=== PATIENT | female | born 1980 | race Caucasian/White ===

== ENCOUNTER 2019-11-26 14:23 | Emergency (ER) | payer OTHER ==
[~2019-11-26] VITALS: Ht 167.6 cm; Wt 56.7 kg
[2019-11-26] MEDS ORDERED: BUSP5 PO (17:22)
[2019-11-26] MEDS ORDERED: ONDA4ODT MM (17:22)
== END 2019-11-26 17:34 | disposition home or self-care (01) ==
LOC: ER 14:23
DX: F11.23 Opioid dependence with withdrawal (principal); F17.200 Nicotine dependence, unspecified, uncomplicated; Z88.0 Allergy status to penicillin
CPT/HCPCS: 96372; 99283-25; J2060

== ENCOUNTER 2021-02-24 14:00 | Emergency (ER) | payer OTHER ==
[~2021-02-24] VITALS: Ht 162.6 cm; Wt 54.3 kg
[~2021-02-24 14:00] MED LIST: BUSP5 PO; ONDA4ODT MM
[2021-02-24 15:16] LABS: BASOPHILS ABSOLUTE AUTO 0.03 K/mm3 (0.00-0.23); BASOPHILS PERCENT AUTO 0 % (0-2); EOSINOPHILS PERCENT AUTO 0 % (0-6); Hematocrit 40.6 % (33.0-51.0); Hemoglobin 13.4 g/dL (11.5-16.0); IMMATURE GRAN ABSOLUTE AUTO 0.09 K/mm3 (0.00-0.10); IMMATURE GRAN PERCENT AUTO 1 % (0-1); LYMPHOCYTES ABSOLUTE AUTO 1.08 K/mm3 (0.84-5.20); LYMPHOCYTES PERCENT AUTO 7 % (21-46); MONOCYTES ABSOLUTE AUTO 0.46 K/mm3 (0.16-1.47); MONOCYTES PERCENT AUTO 3 % (4-13); Mean Corpuscular HGB 26.3 pg (26.0-34.0); Mean Corpuscular Volume 80 fL (80-100); Mean Platelet Volume 10.4 fL (9.1-12.4); NEUTROPHILS ABSOLUTE AUTO 14.17 K/mm3 (1.96-9.15); NEUTROPHILS PERCENT AUTO 90 % (41-73); Platelet Count 407 K/mm3 (150-400); RDW Standard Deviation 43.7 fL (35.1-46.3); White Blood Cell Count 15.83 K/mm3 (4.00-11.30)
[2021-02-24 15:40] LABS: Alanine Aminotransfer (ALT/SGP 30 U/L (12-78); Albumin/Globulin Ratio 0.5 (0.8-1.8); Alk Phos 108 U/L (50-136); Anion Gap 6 mmol/L (6-16); Aspartate Aminotrans (AST/SGOT 28 U/L (12-37); Bilirubin, Total 0.7 mg/dL (0.1-1.0); Blood Urea Nitrogen 11 mg/dL (8-24); Bun/Creatinine Ratio 21.6 (12.0-20.0); CO2, Blood 29 mmol/L (21-32); Calcium, Blood 9.4 mg/dL (8.5-10.1); Chloride, Blood 99 mmol/L (98-108); Creatinine, Blood 0.51 mg/dL (0.40-1.00); Globulin, Blood 6.5 g/dL (2.2-4.0); Glomerular Filtration Rate >60 (60-); Glucose, Blood 105 mg/dL (70-99); Potassium, Blood 3.6 mmol/L (3.5-5.5); Sodium, Blood 134 mmol/L (136-145); Total Protein, Blood 9.5 g/dL (6.4-8.2)
[2021-02-24 18:08] LABS: Source, Urine Clean Catch
[2021-02-24 18:14] LABS: Appearance, Urine Clear (Clear); Bilirubin, Urine Neg (Neg); Blood, Urine 2+ (Neg); Color, Urine Yellow (P-Yellow); Glucose Qualitative, Urine Neg (Neg); Ketones, Urine 4+ (Neg); Leukocyte Esterase, Urine 1+ (Neg); Nitrite, Urine Neg (Neg); Protein, Urine 2+ (Neg); Urobilinogen, Urine 1+ (Normal); pH, Urine 6.5 (5.0-8.0)
[2021-02-24 18:28] LABS: Bacteria Few /hpf; Red Blood Cells, Urine 0-2 /hpf (0-2); Squamous Epithelial Cells Mod /hpf (Few)
== END 2021-02-24 21:49 | disposition short-term general hospital (02) ==
LOC: ER 14:00
PROVIDERS: Physician Assistant
DX: M54.5 Low back pain (principal); R10.9 Unspecified abdominal pain; R20.8 Other disturbances of skin sensation; F17.200 Nicotine dependence, unspecified, uncomplicated
CPT/HCPCS: 36415; 51798; 72125; 72128; 72131; 74177; 80053; 81001; 83605; 83690; 84703; 85025; 87040; 87077; 87086; 87147; 87186; 96361-59; 96365-59; 96366; 96367-59; 96375-59; 96376-59; 99285-25; A9270; J0696; J1885; J2270; J2405; J3010; J3370; J7030; P9612; Q9967

== ENCOUNTER 2021-04-10 07:40 | Inpatient (IN) | payer OTHER ==
[~2021-04-10] VITALS: Ht 165.1 cm; Wt 64.0 kg
[2021-04-10 09:00] LABS: BASOPHILS ABSOLUTE AUTO 0.03 K/mm3 (0.00-0.23); BASOPHILS PERCENT AUTO 0 % (0-2); EOSINOPHILS ABSOLUTE AUTO 0.02 K/mm3 (0.00-0.68); EOSINOPHILS PERCENT AUTO 0 % (0-6); Hemoglobin 12.1 g/dL (11.5-16.0); IMMATURE GRAN ABSOLUTE AUTO 0.02 K/mm3 (0.00-0.10); IMMATURE GRAN PERCENT AUTO 0 % (0-1); LYMPHOCYTES ABSOLUTE AUTO 0.74 K/mm3 (0.84-5.20); LYMPHOCYTES PERCENT AUTO 8 % (21-46); MONOCYTES PERCENT AUTO 2 % (4-13); Mean Corpuscular HGB 26.8 pg (26.0-34.0); Mean Corpuscular HGB Conc 31.8 g/dL (31.5-36.5); Mean Corpuscular Volume 84 fL (80-100); Mean Platelet Volume 10.1 fL (9.1-12.4); NEUTROPHILS ABSOLUTE AUTO 8.66 K/mm3 (1.96-9.15); NEUTROPHILS PERCENT AUTO 90 % (41-73); Platelet Count 314 K/mm3 (150-400); RDW Coefficient Variation 15.8 % (11.7-14.2); RDW Standard Deviation 48.6 fL (35.1-46.3); Red Blood Cell Count 4.51 M/mm3 (3.80-5.20); White Blood Cell Count 9.67 K/mm3 (4.00-11.30)
[2021-04-10 09:25] LABS: Alanine Aminotransfer (ALT/SGP 44 U/L (12-78); Albumin, Blood 3.3 g/dL (3.4-5.0); Albumin/Globulin Ratio 0.5 (0.8-1.8); Alk Phos 85 U/L (50-136); Anion Gap 7 mmol/L (6-16); Aspartate Aminotrans (AST/SGOT 34 U/L (12-37); Bilirubin, Total 0.4 mg/dL (0.1-1.0); Blood Urea Nitrogen 11 mg/dL (8-24); Bun/Creatinine Ratio 23.1 (12.0-20.0); CO2, Blood 25 mmol/L (21-32); Calcium, Blood 9.3 mg/dL (8.5-10.1); Chloride, Blood 104 mmol/L (98-108); Creatinine, Blood 0.48 mg/dL (0.40-1.00); Globulin, Blood 6.1 g/dL (2.2-4.0); Glomerular Filtration Rate >60 (60-); Glucose, Blood 97 mg/dL (70-99); Potassium, Blood 3.9 mmol/L (3.5-5.5); Sodium, Blood 136 mmol/L (136-145); Total Protein, Blood 9.4 g/dL (6.4-8.2)
[2021-04-10 10:56] LABS: SARS-Cov-2 (COVID-19) PCR, MMC NEGATIVE (NEGATIVE)
[2021-04-10] MEDS ORDERED: MIRALAX17 G3 PO (15:55)
[2021-04-10] MEDS ORDERED: MULTI-VITAMIN1 EAC2 PO (15:55)
[2021-04-10] MEDS ORDERED: IBU800 M1 PO (15:56)
[2021-04-10] MEDS ORDERED: GABA400 PO (15:56)
[2021-04-10] MEDS ORDERED: CYMBALTA30 M2 PO (15:56)
[2021-04-10] MEDS ORDERED: Hydroxyzine HCl50 MG PO (15:56)
[2021-04-10] MEDS ORDERED: ZYVOX PO (15:57)
[2021-04-10] MEDS ORDERED: CYCL10 PO (15:57)
[2021-04-10 16:58] LABS: Source, Urine Clean Catch
[2021-04-10 17:01] LABS: Appearance, Urine Clear (Clear); Bilirubin, Urine Neg (Neg); Blood, Urine 2+ (Neg); Color, Urine Yellow (P-Yellow); Glucose Qualitative, Urine Neg (Neg); Ketones, Urine 2+ (Neg); Leukocyte Esterase, Urine Neg (Neg); Nitrite, Urine Neg (Neg); Protein, Urine Neg (Neg); Specific Gravity, Urine 1.015 (1.003-1.022); Urobilinogen, Urine 1+ (Normal)
[2021-04-10 17:11] LABS: White Blood Cells, Urine 0-2 /hpf (0-5)
[2021-04-10 17:12] LABS: Bacteria Rare /hpf; Squamous Epithelial Cells Few /hpf (Few)
[2021-04-11 04:42] LABS: Hematocrit 31.7 % (33.0-51.0); Mean Corpuscular HGB 26.6 pg (26.0-34.0); Mean Corpuscular HGB Conc 31.5 g/dL (31.5-36.5); Mean Corpuscular Volume 84 fL (80-100); Mean Platelet Volume 10.4 fL (9.1-12.4); Platelet Count 279 K/mm3 (150-400); RDW Coefficient Variation 15.9 % (11.7-14.2); RDW Standard Deviation 50.2 fL (35.1-46.3); Red Blood Cell Count 3.76 M/mm3 (3.80-5.20); White Blood Cell Count 6.01 K/mm3 (4.00-11.30)
[2021-04-11 05:00] LABS: Anion Gap 3 mmol/L (6-16); Blood Urea Nitrogen 14 mg/dL (8-24); Bun/Creatinine Ratio 27.1 (12.0-20.0); CO2, Blood 28 mmol/L (21-32); Calcium, Blood 8.3 mg/dL (8.5-10.1); Chloride, Blood 107 mmol/L (98-108); Creatinine, Blood 0.52 mg/dL (0.40-1.00); Glomerular Filtration Rate >60 (60-); Glucose, Blood 130 mg/dL (70-99); Potassium, Blood 3.3 mmol/L (3.5-5.5); Sodium, Blood 138 mmol/L (136-145)
[2021-04-11 05:50] LABS: BASOPHILS ABSOLUTE MAN 0.06 K/mm3 (0.00-0.23); BASOPHILS PERCENT MAN 1 % (0-2); EOSINOPHILS ABSOLUTE MAN 0.06 K/mm3 (0.00-0.68); EOSINOPHILS PERCENT MAN 1 % (0-6); LYMPHOCYTES ABSOLUTE MAN 1.62 K/mm3 (0.84-5.20); LYMPHOCYTES PERCENT MAN 27 % (21-46); MONOCYTES ABSOLUTE MAN 0.48 K/mm3 (0.16-1.47); MONOCYTES PERCENT MAN 8 % (4-13); NEUTROPHILS ABSOLUTE MAN 3.78 K/mm3 (1.96-9.15); SEG NEUTROPHILS PERCENT MAN 63 % (41-73); TOTAL CELLS COUNTED 100
--- NOTE | 2021-04-12 13:29 | NUR ---
Pt. sleeping off and on during shift, watching tv at times. appetite very good, eats 100% meals and has snack between meals. Denies pain. Up to bathroom to shower this a.m.and had bm.
--- NOTE | 2021-04-12 17:01 | NUR ---
Shift Summary: Pt. sleeping off and on all day. Denies pain. When awake is eating ice cream and francy crackers.
--- NOTE | 2021-04-12 18:23 | NUR ---
pt. did c/o back pain this evening and ultram given. At this time request flexeril for back spasm, given. Resting with no further complaint.
[2021-04-13 04:14] LABS: BASOPHILS ABSOLUTE AUTO 0.04 K/mm3 (0.00-0.23); BASOPHILS PERCENT AUTO 1 % (0-2); EOSINOPHILS ABSOLUTE AUTO 0.24 K/mm3 (0.00-0.68); EOSINOPHILS PERCENT AUTO 5 % (0-6); Hematocrit 33.6 % (33.0-51.0); Hemoglobin 10.6 g/dL (11.5-16.0); Mean Corpuscular HGB 26.7 pg (26.0-34.0); Mean Corpuscular HGB Conc 31.5 g/dL (31.5-36.5); Mean Corpuscular Volume 85 fL (80-100); Mean Platelet Volume 9.9 fL (9.1-12.4); Platelet Count 354 K/mm3 (150-400); RDW Coefficient Variation 16.3 % (11.7-14.2); RDW Standard Deviation 50.5 fL (35.1-46.3); Red Blood Cell Count 3.97 M/mm3 (3.80-5.20)
[2021-04-13 04:31] LABS: IMMATURE GRAN ABSOLUTE AUTO 0.02 K/mm3 (0.00-0.10); IMMATURE GRAN PERCENT AUTO 0 % (0-1); LYMPHOCYTES ABSOLUTE AUTO 2.45 K/mm3 (0.84-5.20); LYMPHOCYTES PERCENT AUTO 46 % (21-46); MONOCYTES ABSOLUTE AUTO 0.58 K/mm3 (0.16-1.47); MONOCYTES PERCENT AUTO 11 % (4-13); NEUTROPHILS ABSOLUTE AUTO 1.97 K/mm3 (1.96-9.15); NEUTROPHILS PERCENT AUTO 37 % (41-73)
[2021-04-13 04:32] LABS: Anion Gap 3 mmol/L (6-16); Blood Urea Nitrogen 13 mg/dL (8-24); Bun/Creatinine Ratio 25.9 (12.0-20.0); CO2, Blood 28 mmol/L (21-32); Calcium, Blood 8.7 mg/dL (8.5-10.1); Chloride, Blood 103 mmol/L (98-108); Glomerular Filtration Rate >60 (60-); Glucose, Blood 103 mg/dL (70-99); Potassium, Blood 4.4 mmol/L (3.5-5.5); Sodium, Blood 134 mmol/L (136-145)
--- NOTE | 2021-04-13 06:12 | NUR ---
Pt in bed at this time where she remains throughout the night and is resting comfortably in stable condition. She is alert and oriemted, is pleasant. She c/o of lumbar pain secondary to chronic lower back pain and was medicated as indicated, medicated with other ordered meds, assisted with care and ADLs, assisted with bathroom and toileting needs. IV left upper arm is patent, no discomfort at the IV insertion site. Her call light is near her and urged to call for help when assistance is needed as she is monitored.
--- NOTE | 2021-04-13 08:03 | NUR ---
asessment: PT SLEEPING. APPEARS TO BE RESTING COMFORTABLY WITH NO S/S DISTRESS. VSS. CALL LIGHT IN REACH. WILL DO FULL ASSESSMENT WHEN AWAKE.
--- NOTE | 2021-04-13 19:15 | NUR ---
PT HAS BEEN STABLE THIS SHIFT. CONTINUES TO REPORT HIGH PAIN LEVELS. PT MEDICATED PER EMAR. PT SLEEPS AFTER PAIN MEDS AND T/O MOST OF THE DAY. KPAD TO BACK FOR COMFORT. PT WORKED WITH THERAPY THIS AFTERNOON. PT UP TO COMMODE WITH MIN ASSIST. VOIDING WELL. PT HAD BM THIS AM. PT CHELSEA DIET. CONT ABX ORDERED. IV AT TKO. PT USES CALL LIGHT APPROPRIATELY NEEDED.
--- NOTE | 2021-04-14 06:15 | NUR ---
AAOX4. NO ACUTE DISTRESS NOTED AT THIS. CALL LIGHT WITHIN REACH. BED AT LOWEST POSITION AND LOCKED. NO VERBALIZED NEEDS AT THIS TIME
--- NOTE | 2021-04-14 16:41 | NUR ---
Initial Palliative visit with pt today. She's alert, oriented and pleasant today. 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 She is not currently using, and states she plans to remain free of the addiction, as she realizes this is likely the reason for the infection in the first place. I asked if she enjoyed reading or anything, she states she loves doing adult coloring book, so I brought her some to color with. Plan to follow up with her in 2 days.
--- NOTE | 2021-04-14 17:45 | NUR ---
SHIFT SUMMARY PT REMAINS IN THE HOSPITAL FOR IV ABX. PAIN HAS BEEN MANAGED WITH PO PAIN MEDICATION. PT IS INDEPENDENT IN THE ROOM. VSS. WILL MONITOR UNTIL REPORT TO JEANNIE ROBBINS.
--- NOTE | 2021-04-15 04:23 | NUR ---
LYING IN SEMI FOWLERS WITH EYES CLOSED. HAS BEEN PLEASANT AND COOPERATIVE WITH CARE. RESTED WELL SINCE START OF SHIFT. STATS MELATONIN WORKS WELL FOR HER. PAIN MANAGED PER EMAR. CONTINUEING SCHEDULED ABX PER MDORDERS. DENIES FURTHER NEEDS OR WANTS AT THIS TIME. SAFETY MEASURES IN PLACE. WILL GIVE HAND OFF TO ONCOMING SHIFT USIING SBAR DURING BEDSIDE REPORT.
--- NOTE | 2021-04-15 17:06 | NUR ---
SHIFT SUMMARY PT A&OX4, VSS/RA. SPINAL ABSCESS/BACK PAIN 7-03/24, TREATED WITH ULTRAM Q4P, TYLENOL Q6P AND FLEXERIL TID, ICY HOT PATCH TO LOWER BACK. 18G IV LYNN, ABX Q8 PER EMAR. CHELSEA PO. VOIDING WELL/BSC, BM TODAY. SHOWERED TODAY. AMB SBA TO BRP OCCASSIONALLY. WILL REPORT TO ONCOMING NOC RN.
--- NOTE | 2021-04-16 04:18 | NUR ---
SHIFT SUMMARY PT A&O T/O SHIFT. PT VERY PAINFUL, DR. CORADO CONTACTED AND EMAR ADJUSTED. BT'S PRESENT IN ALL 4 Q'S. VSS. CALL LIGHT W/IN REACH. PT DENIES SOB/ CHEST PAIN. PT RESTED IN BED T/O NIGHT.
[2021-04-16 07:09] LABS: HIV SCREEN 4TH GENERATION WRFX Non Reactive (Non Reactive)
--- NOTE | 2021-04-16 16:06 | NUR ---
SHIFT SUMMARY PT A&OX4, VSS/RA, PAIN MANAGED WITH TYLENOL/TORADOL/ULTRAM/METHADONE - NO FENT GIVEN THIS SHIFT. PT PARTICIPATED WITH PHYSICAL THERAPY, AMBULATING TO BRP AND HALLWAYS T/O SHIFT. CHELSEA PO. VOIDING WELL. 18G LYNN, ABX INFUSED PER EMAR. WILL REPORT TO JEANNIE ROBBINS.
--- NOTE | 2021-04-17 06:36 | NUR ---
LYING ON RIGHT SIDE WITH HOB IN SEMI FOWLERS WITH EYES CLOSED. HAS BEEN PAINFUL AND RESTED OFF AND ON TONIGHT. STATES SHE WANTS FENTANYL BACK, NURSING REITERATED DANGERS OF MIXING NARCOTICS WITH METHADONE. PAIN ADDRESSED PER EMAR. CONTINUEING SCHEDULED ABX PER MD ORDERS. PROVIDED WITH MULTIPLE SNACKS THIS SHIFT, IS REQUESTING MORE AT THIS TIME. DENIES FURTHER NEEDS OR WANTS AT THIS TIME. SAFETY MEASURES IN PLACE. WILL GIVE HAND OFF TO ONCOMING SHIFT USIING SBAR DURING BEDSIDE REPORT.
--- NOTE | 2021-04-17 15:48 | NUR ---
SHIFT SUMMARY: SPINE ABCESS PATIENT IS ALERT AND ORIENTED X4. VS ARE WNL AND IS ON RA. PAIN IS UNDER CONTROL WITH IV TORADOL AND PO ULTRAM SO FAR TODAY. IV IS RUNNING WITH FLUIDS AND ABX. SHE IS INDEPENDANT IN THE ROOM BUT CALLS APPROPRIATELY. SHE IS ABLE TO READJUST HERSELF IN BED NEEDED. PATIENT WAS ABLE TO TAKE A SHOWER TODAY. SHE IS TOLERATING PO INTAKE WITH MEALS AND SNACKS. PATIENT IS VOIDING AND PASSING GAS. THE PLAN IS TO CONTINUE IV ABX AND AWAITING FOR DISCHARGE PLANNING FOR PLACEMENT.
[2021-04-18 16:31] LABS: Source, Urine Clean Catch
[2021-04-18 16:46] LABS: Appearance, Urine Clear (Clear); Bilirubin, Urine Neg (Neg); Blood, Urine Neg (Neg); Color, Urine Amber (P-Yellow); Glucose Qualitative, Urine Neg (Neg); Ketones, Urine Neg (Neg); Leukocyte Esterase, Urine Neg (Neg); Nitrite, Urine Neg (Neg); Protein, Urine 1+ (Neg); Specific Gravity, Urine 1.015 (1.003-1.022); Urobilinogen, Urine NORM (Normal)
[2021-04-19 10:05] LABS: Candida species (DNA Probe) Negative (NEGATIVE); G. vaginalis (DNA Probe) Positive (NEGATIVE); T. vaginalis (DNA Probe) Negative (NEGATIVE)
--- NOTE | 2021-04-20 17:45 | NUR ---
SHIFT SUMMARY PT A&OX4, VSS/RA, FEVER TREATED WITH TYLENOL/IMPROVING, PAIN TREATED WITH METHADONE TID AND ULTRAM PRN. IV ABX PER EMAR. AMB INDEPENDENT IN ROOM, SHOWERED TODAY. VOIDING. WILL REPORT TO ONCOMING NOC RN.
[2021-04-21 05:26] LABS: BASOPHILS ABSOLUTE AUTO 0.04 K/mm3 (0.00-0.23); BASOPHILS PERCENT AUTO 0 % (0-2); EOSINOPHILS ABSOLUTE AUTO 0.14 K/mm3 (0.00-0.68); EOSINOPHILS PERCENT AUTO 2 % (0-6); Hematocrit 33.5 % (33.0-51.0); Hemoglobin 10.7 g/dL (11.5-16.0); IMMATURE GRAN ABSOLUTE AUTO 0.04 K/mm3 (0.00-0.10); IMMATURE GRAN PERCENT AUTO 0 % (0-1); LYMPHOCYTES ABSOLUTE AUTO 2.53 K/mm3 (0.84-5.20); LYMPHOCYTES PERCENT AUTO 28 % (21-46); MONOCYTES ABSOLUTE AUTO 0.82 K/mm3 (0.16-1.47); MONOCYTES PERCENT AUTO 9 % (4-13); Mean Corpuscular HGB 26.6 pg (26.0-34.0); Mean Corpuscular HGB Conc 31.9 g/dL (31.5-36.5); Mean Corpuscular Volume 83 fL (80-100); Mean Platelet Volume 9.9 fL (9.1-12.4); NEUTROPHILS ABSOLUTE AUTO 5.41 K/mm3 (1.96-9.15); NEUTROPHILS PERCENT AUTO 60 % (41-73); Platelet Count 369 K/mm3 (150-400); RDW Coefficient Variation 16.1 % (11.7-14.2); RDW Standard Deviation 49.4 fL (35.1-46.3); Red Blood Cell Count 4.03 M/mm3 (3.80-5.20); White Blood Cell Count 8.98 K/mm3 (4.00-11.30)
[2021-04-21 05:58] LABS: Albumin, Blood 2.4 g/dL (3.4-5.0); Anion Gap 6 mmol/L (6-16); Blood Urea Nitrogen 14 mg/dL (8-24); Bun/Creatinine Ratio 25.9 (12.0-20.0); CO2, Blood 26 mmol/L (21-32); Calcium, Blood 8.9 mg/dL (8.5-10.1); Chloride, Blood 101 mmol/L (98-108); Creatinine, Blood 0.54 mg/dL (0.40-1.00); Glomerular Filtration Rate >60 (60-); Glucose, Blood 95 mg/dL (70-99); Phosphorus, Blood 4.2 mg/dL (2.5-4.9); Potassium, Blood 3.8 mmol/L (3.5-5.5); Sodium, Blood 133 mmol/L (136-145)
--- NOTE | 2021-04-21 12:49 | NUR ---
DISCHARGE DISCHARGE INSTRUCTIONS GIVEN TO PATIENT AT THIS TIME. PATIENT VERBALZIED UNDERSTANDING OF DC INSTUCTIONS. PRESCRIPTION GIVEN TO PATIENT. KNEE IMMOBILIZIEER IN PLACE.
--- NOTE | 2021-04-21 17:40 | NUR ---
PATIENT CURRENTLY LYING IN BED WITH NO SIGNS OR SYMPTOMS ACUTE DISTRESS NOTED. CALL LIGHT AND WATER IN EASY REACH. ABLE TO MAKE NEEDS AND WANTS KNOWN. AAOX4. MEDICATED FOR BACK PAIN TODAY PER ORDERS-SEE EMAR. PATIENT CONTINUES IV ANTIBIOTICS PER ORDERS. PATIENT UP AD TANIA. GOOD APPETITE. WILL MONITOR.
--- NOTE | 2021-04-22 05:47 | NUR ---
SHIFT SUMMARY NO ACUTE CHANGES OVERNIGHT. PT STS PAIN HAS IMPROVED FROM 7/10 PAIN LEVEL LAST NIGHT TO 5/10 PAIN LEVEL THIS MORNING. PAIN MANAGED WITH TYLENOL, ULTRAM, FLEXERIL AND METHANDONE. AOX4. PLEASANT. INDEPENDENT IN ROOM. PT TOOK A SHOWER BEFORE BED. TOLERATING PO INTAKE. DENIES NAUSEA AND VOMITING. ABX ADMINISTERED LAST NIGHT. CALL LIGHT WITHIN REACH. WILL PROVIDE REPORT TO ONCOMING NURSE. PLAN: CM - WAITING FOR PLACEMENT.
--- NOTE | 2021-04-22 18:17 | NUR ---
PATIENT CURRENTLY LYING IN BED WITH NO SIGNS OR SYMPTOMS ACUTE DISTRESS NOTED. CALL LIGHT AND WATER IN EASY REACH. ABLE TO MAKE NEEDS AND WANTS KNOWN. PATIENT COMPLAINED OF INCREASED PAIN IN BACK, REQUESTED A CALL TO DR NUNEZ. DR RESENDEZ ORDERED TORDAL WHICH PATIENT REFUSED. CALLED DR NUNEZ BACK WITH NEW ORDER FOR LIDODERM PATCH TO BE PLACED. PATIENT REQUESTED DILAUDID TO BE ORDERED, DR NUNEZ DENIED THE REQUEST. LIDODERM PATCH PLACED ON PATIENTS LOWER BACK. WILL MONITOR.
--- NOTE | 2021-04-23 04:16 | NUR ---
SHIFT SUMMARY PT A&O X4 AND IN PLEASENT MOOD T/O SHIFT. PT TOLERATING PO INTAKE WELL. INDEPENDENT IN ROOM. MINIMAL C/O PAIN, MEDICATED PER EMAR. BOWEL TONES PRESENT IN ALL 4 QUADRANTS. CALL LIGHT W/IN REACH. VSS.
[2021-04-23 12:54] LABS: U Amphetamine Screen Not Detected; U Barbituate Screen Not Detected; U Benzodiazapine Screen Not Detected; U Cocaine Screen Not Detected; U Methadone Screen DETECTED; U Methamphetamine Screen Not Detected; U Opiates Screen DETECTED
[2021-04-23 12:55] LABS: U Buprenorphine Screen Not Detected; U Cannabinoids Screen Not Detected; U Oxycodone Screen Not Detected; U Phencyclidine Screen Not Detected; U Propoxyphene Screen Not Detected
--- NOTE | 2021-04-23 19:35 | NUR ---
PATIENT HAD A GOOD DAY TODAY. NO SIGNS OR SYMPTOMS ACUTE DISTRESS NOTED. ABLE TO MAKE NEEDS AND WANTS KNOWN. URINE DRUG SCREEN DONE TODAY PER ORDERS. MEDICATED FOR PAIN PER ORDERS-SEE EMAR. IV ANTIBIOTICS CONTINUES, PATIENT TO DC ON THURSDAY ON PO ANTIBIOTICS. CALL LIGHT AND WATER IN EASY REACH. REPORT GIVEN TO ITZEL VELIZ.
--- NOTE | 2021-04-24 03:41 | NUR ---
SHIFT SUMMARY PT A&O X4 AND IN PLEASENT MOOD T/O SHIFT. PT RESTED IN BED T/O SHIFT. MIN COMPLAINTS OF PAIN, MEDICATED PER EMAR AND WITH HEAT PAD. TOLERATING PO INTAKE WELL. VSS. CALL LIGHT W/IN REACH.
--- NOTE | 2021-04-24 08:46 | NUR ---
PATIENT CURRENTLY SITTING UP IN BED EATING BREAKFAST. NO SIGNS OR SYMPTOMS ACUTE DISTRESS NOTED. CALL LIGHT AND WATER IN EASY REACH. ABLE TO MAKE NEEDS AND WANTS KNOWN.
--- NOTE | 2021-04-24 17:32 | NUR ---
PATIENT HAD A GOOD DAY TODAY. NO SIGNS OR SYMPTOMS ACUTE DISTRESS NOTED. CALL LIGHT AND WATER IN EASY REACH. ABLE TO MAKE NEEDS AND WANTS KNOWN. PATIENT DID NOT REQUEST ANY EXTRA PAIN MEDS TODAY. CONTINUES IV ANTIBIOTICS. PATIENT TO DISCHARGE ON THURSDAY ON PO ANTIBIOTICS. PATIENT CHANGES HER OWN LINENS AND IS GETTING INTO SHOWER. PATIENT IS UP AD TANIA WITH NO PROBLEMS. WILL MONITOR.
--- NOTE | 2021-04-25 17:24 | NUR ---
PATIENT CURRENTLY IN BED EATING SUPPER AT THIS TIME. CALL LIGHT AND WATER IN EASY REACH. ABLE TO MAKE NEEDS AND WANTS KNOWN. ASK FOR FOOD OFTEN. MEDICATED FOR PAIN WITH PRN PAIN MEDS SEE EMAR. CONTINUES IV ANTIBIOTICS. DROWSY MOST OF DAY. VOIDING WELL. AAO X 4. WILL MONITOR.
[2021-04-26] MEDS ORDERED: Acetaminophen325 M1 PO (11:18)
[2021-04-26] MEDS ORDERED: ASCO500 PO (11:19)
[2021-04-26] MEDS ORDERED: METH40 (11:20)
--- NOTE | 2021-04-26 12:25 | NUR ---
DISCHARGE NOTE: PATIENT WAS EDUCATED ON DISCHARGE INSTRUCTIONS. SHE VERBALIZED UNDERSTANDING OF INSTRUCTIONS. HER HARD PERSCRIPTION IS IN HER INSTRUCTION FOLDER. IV WAS TAKEN OUT AND WAS WNL. SHE IS ALERT AND ORIENTED X4. VS ARE WNL AND IS ON RA. PAIN IS MANAGED WITH PO PAIN MEDICATION. SHE IS ABLE TO TOLERATE PO INTAKE, VOID, AND HAS HAD A BM. PATIENT HAS BEEN IND. IN THE ROOM. SHE IS GATHERING HER ITEMS IN THE ROOM AT THIS TIME. SHE WILL BE WHEELCHAIRED OUT TO HER BOYFRIENDS CAR TO TAKE HER HOME.
== END 2021-04-26 13:45 | disposition home or self-care (01) | DRG 540 ==
LOC: ER 07:40 → SURS 15:46 → MEDS 15:46 → SURS 17:25
PROVIDERS: Internal Medicine; Internal Medicine Infectious Disease; Physician Assistant; ADMIT Internal Medicine
DX: M46.26 Osteomyelitis of vertebra, lumbar region (principal); R78.81 Bacteremia; Z20.822 Contact with and (suspected) exposure to COVID-19; N76.0 Acute vaginitis; T37.3X5A Adverse effect of other antiprotozoal drugs, initial encounter; B96.89 Other specified bacterial agents as the cause of diseases classified elsewhere; B95.61 Methicillin susceptible Staphylococcus aureus infection as the cause of diseases classified elsewhere; F11.10 Opioid abuse, uncomplicated; F15.10 Other stimulant abuse, uncomplicated; M46.46 Discitis, unspecified, lumbar region; F17.210 Nicotine dependence, cigarettes, uncomplicated; Z88.0 Allergy status to penicillin; Z59.00 Homelessness unspecified
CPT/HCPCS: 36415; 71045; 72158; 80048; 80053; 80069; 81001; 83605; 83735; 85025; 85651; 86140; 87040; 87077; 87147; 87186; 87389; 87480; 87510; 87660; 93306; 96365; 96366; 96375; 96376; 97110; 97116; 97162; 99285-25; A9270; A9579; J0690; J1170; J1885; J2405; J2550; J3010; J3370; J7030; J7050; U0004

== ENCOUNTER 2021-05-27 22:41 | Emergency (ER) | payer OTHER ==
[~2021-05-27] VITALS: Ht 165.1 cm; Wt 59.0 kg
[~2021-05-27 22:41] MED LIST changes: +ASCO500 PO; +Acetaminophen325 M1 PO; +CYCL10 PO; +CYMBALTA30 M2 PO; +GABA400 PO; +Hydroxyzine HCl50 MG PO; +IBU800 M1 PO; +METH40; +MIRALAX17 G3 PO; +MULTI-VITAMIN1 EAC2 PO; +ZYVOX PO
[2021-05-27] MEDS ORDERED: METHADONE HCL PO (23:39)
== END 2021-05-28 00:05 | disposition home or self-care (01) ==
LOC: ER 22:41
DX: T40.1X1A Poisoning by heroin, accidental (unintentional), initial encounter (principal); F17.210 Nicotine dependence, cigarettes, uncomplicated; Z88.0 Allergy status to penicillin
CPT/HCPCS: 99284

== ENCOUNTER 2021-06-05 10:04 | Emergency (ER) | payer OTHER ==
[~2021-06-05] VITALS: Ht 165.1 cm; Wt 59.0 kg
[~2021-06-05 10:04] MED LIST changes: +METHADONE HCL PO
[2021-06-05] MEDS ORDERED: Norco 5-325 Ta1 EACH PO (10:33)
[2021-06-05 11:10] LABS: Source, Urine Clean Catch
[2021-06-05 11:17] LABS: Appearance, Urine Clear (Clear); Bilirubin, Urine Neg (Neg); Blood, Urine 2+ (Neg); Color, Urine Yellow (P-Yellow); Glucose Qualitative, Urine Neg (Neg); Ketones, Urine Neg (Neg); Leukocyte Esterase, Urine 3+ (Neg); Nitrite, Urine Neg (Neg); Protein, Urine Neg (Neg); Specific Gravity, Urine 1.025 (1.003-1.022); Urobilinogen, Urine NORM (Normal)
[2021-06-05 11:42] LABS: Bacteria Many /hpf; Squamous Epithelial Cells Many /hpf (Few)
[2021-06-05 11:43] LABS: Amorphous Light (0-Heavy)
[2021-06-05] MEDS ORDERED: Macrobid 100 M100 MG PO (12:14)
== END 2021-06-05 12:22 | disposition home or self-care (01) ==
LOC: ER 10:04
PROVIDERS: Emergency Medicine
DX: N39.0 Urinary tract infection, site not specified (principal); F11.20 Opioid dependence, uncomplicated; F17.210 Nicotine dependence, cigarettes, uncomplicated; Z88.0 Allergy status to penicillin
CPT/HCPCS: 81001; 87086

== ENCOUNTER 2021-10-16 18:55 | Emergency (ER) | payer OTHER ==
[~2021-10-16] VITALS: Ht 162.6 cm; Wt 56.7 kg
[~2021-10-16 18:55] MED LIST changes: +BUPRENORPHIN-N1 EAC1 SL; +MUPIROCIN TOP; +Macrobid 100 M100 MG PO; +NALOXONE HC1 MG/1 ML IM; +Norco 5-325 Ta1 EACH PO; +SULTRIDS PO
[2021-10-16 20:40] LABS: BASOPHILS ABSOLUTE AUTO 0.04 K/mm3 (0.00-0.23); BASOPHILS PERCENT AUTO 1 % (0-2); EOSINOPHILS ABSOLUTE AUTO 0.28 K/mm3 (0.00-0.68); EOSINOPHILS PERCENT AUTO 4 % (0-6); Hematocrit 36.8 % (33.0-51.0); Hemoglobin 11.8 g/dL (11.5-16.0); IMMATURE GRAN ABSOLUTE AUTO 0.02 K/mm3 (0.00-0.10); IMMATURE GRAN PERCENT AUTO 0 % (0-1); LYMPHOCYTES ABSOLUTE AUTO 2.61 K/mm3 (0.84-5.20); LYMPHOCYTES PERCENT AUTO 38 % (21-46); MONOCYTES ABSOLUTE AUTO 0.51 K/mm3 (0.16-1.47); MONOCYTES PERCENT AUTO 8 % (4-13); Mean Corpuscular HGB 27.9 pg (26.0-34.0); Mean Corpuscular HGB Conc 32.1 g/dL (31.5-36.5); Mean Corpuscular Volume 87 fL (80-100); Mean Platelet Volume 10.4 fL (9.1-12.4); NEUTROPHILS ABSOLUTE AUTO 3.36 K/mm3 (1.96-9.15); NEUTROPHILS PERCENT AUTO 49 % (41-73); Platelet Count 332 K/mm3 (150-400); RDW Standard Deviation 48.2 fL (35.1-46.3); Red Blood Cell Count 4.23 M/mm3 (3.80-5.20); White Blood Cell Count 6.82 K/mm3 (4.00-11.30)
[2021-10-16 21:09] LABS: Alanine Aminotransfer (ALT/SGP 62 U/L (12-78); Albumin, Blood 3.1 g/dL (3.4-5.0); Albumin/Globulin Ratio 0.6 (0.8-1.8); Alk Phos 68 U/L (50-136); Anion Gap 7 mmol/L (6-16); Aspartate Aminotrans (AST/SGOT 33 U/L (12-37); Bilirubin, Total 0.2 mg/dL (0.1-1.0); Blood Urea Nitrogen 19 mg/dL (8-24); Bun/Creatinine Ratio 30.5 (12.0-20.0); CO2, Blood 30 mmol/L (21-32); Calcium, Blood 9.1 mg/dL (8.5-10.1); Chloride, Blood 102 mmol/L (98-108); Creatinine, Blood 0.62 mg/dL (0.40-1.00); Globulin, Blood 5.1 g/dL (2.2-4.0); Glomerular Filtration Rate >60 (60-); Glucose, Blood 72 mg/dL (70-99); Potassium, Blood 4.1 mmol/L (3.5-5.5); Sodium, Blood 139 mmol/L (136-145); Total Protein, Blood 8.2 g/dL (6.4-8.2)
== END 2021-10-16 19:40 | disposition left against medical advice (07) ==
LOC: ER 18:55
PROVIDERS: Student in an Organized Health Care Education/Training Program
DX: L97.829 Non-pressure chronic ulcer of other part of left lower leg with unspecified severity (principal)
CPT/HCPCS: 36415; 80053; 83605; 85025; 99282